=== PATIENT | female | born 1985 | race Caucasian/White ===

== ENCOUNTER 2020-01-23 20:31 | Emergency (ER) | payer SELFPAY ==
[~2020-01-23] VITALS: Ht 157.5 cm; Wt 81.8 kg
[2020-01-23 20:41] VITALS: BP 126/93; PULSE 82; TEMP 98.4
== END 2020-01-23 22:00 | disposition home or self-care (01) ==
LOC: COL.ER 20:31
DX: S83.92XA Sprain of unspecified site of left knee, initial encounter (principal); F17.210 Nicotine dependence, cigarettes, uncomplicated; W01.0XXA Fall on same level from slipping, tripping and stumbling without subsequent striking against object, initial encounter; X50.1XXA Overexertion from prolonged static or awkward postures, initial encounter
CPT/HCPCS: L1846